=== PATIENT | male | born 2000 | race Hispanic/Latino ===

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

== ENCOUNTER 2019-06-07 17:09 | Emergency (ER) | payer SELFPAY | END 2019-06-07 18:57 | disposition home or self-care (01) | LOC: ERS 17:09 | DX: K05.10 Chronic gingivitis, plaque induced (principal); K03.81 Cracked tooth; K20.9 Esophagitis, unspecified | CPT/HCPCS: 99283 ==

== ENCOUNTER 2020-01-13 20:16 | Emergency (ER) | payer SELFPAY ==
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
--- NOTE | 2020-01-13 21:24 | RAD ---
LEFT HUMERUS TWO VIEWS: 01/13/20 HISTORY: Humeral pain. There is no signs of fracture or dislocation. IMPRESSION: Negative left humerus. POS: OFF
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
--- NOTE | 2020-01-13 21:25 | RAD ---
LEFT SHOULDER THREE VIEWS: 01/13/20 HISTORY: Shoulder pain. There is no signs of fracture or dislocation. IMPRESSION: Negative left shoulder. POS: OFF
[2020-01-13] MEDS ORDERED: Morphine 4 MG/ML VIAL ONE (21:26)
[2020-01-13] MEDS ORDERED: Ketorolac Tromethamine 30 MG/ML VIAL ONE (21:26)
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
== END 2020-01-13 22:30 | disposition home or self-care (01) ==
LOC: ERS 20:16
DX: S46.912A Strain of unspecified muscle, fascia and tendon at shoulder and upper arm level, left arm, initial encounter (principal); V43.52XA Car driver injured in collision with other type car in traffic accident, initial encounter
CPT/HCPCS: 71045; 96372; J1885; J2270